=== PATIENT | female | born 2000 | race Caucasian/White ===

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

== ENCOUNTER 2025-01-04 05:17 | Outpatient (CLI) | payer BC, SELFPAY ==
[2025-01-04 16:12] LABS: HCT 40.6 % (36.0-46.0); HGB 13.5 g/dL (11.2-15.7); MCH 28.2 pg (27.0-33.0); MCHC 33.3 % (32.0-36.0); MCV 85 fL (80-95); MPV 9.3 fL (8.0-11.0); Platelet Count 313 10^3/uL (130-400); RBC 4.79 10^6/uL (3.93-5.22); RDW 12.5 % (11.7-14.6); RDW-SD 38.2 fL; WBC 11.30 10^3/uL (4.4-10.8)
[2025-01-04 16:38] LABS: Hemoglobin A1C 5.0 % (<5.7)
== END 2025-01-04 05:18 | disposition home or self-care (01) ==
LOC: LBO 05:17
PROVIDERS: Visit Provider Advanced Practice Midwife
DX: Z34.91 Encounter for supervision of normal pregnancy, unspecified, first trimester (principal)
CPT/HCPCS: 36415; 85027; 86787; 86850; 86900; 86901; 83036

== ENCOUNTER 2025-01-04 15:02 | Outpatient (REF) | payer BC, SELFPAY ==
[2025-01-07 12:36] LABS: Chlamydia Result Negative (Negative); GC Result Negative (Negative)
== END 2025-01-04 15:03 | disposition home or self-care (01) ==
LOC: LBN 15:02
PROVIDERS: Visit Provider Advanced Practice Midwife
DX: Z34.91 Encounter for supervision of normal pregnancy, unspecified, first trimester (principal)
CPT/HCPCS: 87491; 87591; 87086

== ENCOUNTER 2025-02-01 21:40 | Outpatient (REF) | payer BC, SELFPAY ==
[2025-02-01 20:42] LABS: Cannabinoids THC Negative (Negative); METHADONE URINE SCREEN Negative (Negative)
== END 2025-02-01 21:41 | disposition home or self-care (01) ==
LOC: LBN 21:40
PROVIDERS: Visit Provider Advanced Practice Midwife
DX: Z34.91 Encounter for supervision of normal pregnancy, unspecified, first trimester (principal)
CPT/HCPCS: 80307; 80348